=== PATIENT | male | born 1950 | race Asian ===

== ENCOUNTER 2023-01-03 06:03 | Day surgery (SDC) | payer BC, MEDICARE ==
[2022-12-27 16:12] LABS: BASOPHILS # (AUTO) 0.1 X10'3 (0-0.2); BASOPHILS % (AUTO) 0.6 % (0-1); EOSINOPHILS # (AUTO) 0.4 X10'3 (0-0.9); LYMPHOCYTES # (AUTO) 1.6 X10'3 (1.1-4.8); LYMPHOCYTES % (AUTO) 17.6 % (21-51); MEAN CORPUSCULAR HEMOGLOBIN 28.9 PG (27.0-31.0); MEAN CORPUSCULAR HGB CONC 32.8 g/dL (33.0-36.5); MEAN CORPUSCULAR VOLUME 88.1 FL (78-98); MEAN PLATELET VOLUME 8.3 FL (7.4-10.4); MONOCYTES # (AUTO) 0.8 X10'3 (0-0.9); MONOCYTES % (AUTO) 8.8 % (2-12); NEUTROPHILS # (AUTO) 6.1 X10'3 (1.8-7.7); PRE OP HEMATOCRIT 42.8 % (42.0-52.0); PRE OP HEMOGLOBIN 14.1 g/dL (14.0-17.9); PRE OP PLATELET COUNT 194 X10'3 (140-440); PRE OP WHITE BLOOD COUNT 8.9 10'3 (4.8-10.8); RED BLOOD COUNT 4.86 X10'6 (4.70-6.10)
[2022-12-27 16:27] LABS: ALBUMIN/GLOBULIN RATIO 1.3 (1.1-1.5); ALKALINE PHOSPHATASE 56 IU/L (46-116); BLOOD UREA NITROGEN 17 MG/DL (7-18); BUN/CREATININE RATIO 12.6 (10.0-20.0); CALCIUM 9.3 MG/DL (8.5-10.1); CHLORIDE 107 MMOL/L (99-107); CREATININE 1.35 MG/DL (0.60-1.10); PRE OP ALT 29 U/L (30-65); PRE OP ANION GAP 9 (8-16); PRE OP AST 16 U/L (10-37); PRE OP BILIRUB, TOTAL 0.4 MG/DL (0.0-1.0); PRE OP GLUCOSE 186 MG/DL (70-104); PRE OP POTASSIUM 3.7 MMOL/L (3.4-5.1); PRE OP SODIUM 143 MMOL/L (135-145); TOTAL CARBON DIOXIDE 27.1 MMOL/L (24-32); TOTAL PROTEIN 7.1 G/DL (6.4-8.2); eGFR 52 ML/MIN
[2023-01-03] VITALS (9 sets, daily range): BP systolic 139–167; BP diastolic 74–99; PULSE 69–90; RESP 15–19; TEMP 97.4; O2SAT 93–100
[~2023-01-03] VITALS: Ht 165.1 cm; Wt 141.8 kg
[~2023-01-03 06:03] MED LIST: CARI-515 PO; FLO0.4C PO; METF750T46 PO; REPA2TAB12 PO; ROSU10TA28 PO; VIT D; cefazolin 2gm/D5W 100mL 100 ML IV ONE; famotidine 20mg tablet PO ONE
[2023-01-03] MEDS: ringers solution, lacted 1,000 ML IV SCH ×3 (06:31→10:32)
[2023-01-03 07:31] LABS: BILIRUBIN,URINE NEGATIVE (Neg); CLARITY,URINE CLEAR (Clear); COLOR,URINE STRAW (Yellow); GLUCOSE, URINE NEGATIVE (Neg); KETONES,URINE NEGATIVE (Neg); LEUKOCYTE ESTERASE ,URINE NEGATIVE (Neg); NITRITES, URINE NEGATIVE (Neg); OCCULT BLOOD,URINE NEGATIVE (Neg); PROTEIN,URINE NEGATIVE (Neg); UROBILINOGEN,URINE 0.2 E.U/dL (0.2-1.0)
[2023-01-03 07:34] LABS: UA COLLECTION TYPE NON-SPECIFIED
[2023-01-03] MEDS ORDERED: midazolam 1 mg/ML 2ml injection ONE (08:07)
[2023-01-03] MEDS ORDERED: fentaNYL/PF 50MCG/1 ML 2ML syringe ONE ×2 (08:07→08:44)
[2023-01-03] MEDS ORDERED: rocuronium 10mg/ml inj IV ONE (08:09)
[2023-01-03] MEDS ORDERED: LIDOcaine 2% (20mg/ml) 5ml vial ONE (08:09)
[2023-01-03] MEDS ORDERED: BUPIVAcaine/PF 2.5 mg/ml (0.25%) 30ml vial ONE (08:09)
[2023-01-03] MEDS ORDERED: propofol inj 20 ML IV ONE (08:09)
[2023-01-03] MEDS ORDERED: bacitracin 15gm ointment TP ONE (08:10)
[2023-01-03] MEDS ORDERED: morphine 2 MG/ML inj. syringe IV PRN (08:15)
[2023-01-03] MEDS ORDERED: proCHLORperazine 10 MG/2 ml inj IV PRN (08:15)
[2023-01-03] MEDS ORDERED: ringers solution, lacted 1,000 ML IV SCH (08:15)
[2023-01-03] MEDS ORDERED: morphine 4 MG/ML inj SYRINge IV PRN (08:15)
[2023-01-03] MEDS ORDERED: meperidine/PF 25mg/ml syringe IV PRN ×3 (08:15)
[2023-01-03] MEDS ORDERED: ondansetron/PF 4mg/2ml inj IV PRN (08:15)
[2023-01-03] MEDS ORDERED: acetaminophen 1,000mg/100ml IV 100 ML IV ONE (08:53)
[2023-01-03] MEDS ORDERED: BUPIVAcaine 0.25% w/Epi /PF 30ml vial IJ ONE (08:54)
--- NOTE | 2023-01-03 09:45 | NUR ---
Received from OR via [facility], accompanied by Anesthesiologist DR. GUERRA and report given by Anesthesiolgist. ORDERED TO GIVE LABETOLOL IV FOR HYPERTENSION. DENIES PAIN. DRESSING TO RIGHT FOOT CDI, WITH BOOT IN PLACE. 20G PIV TO LEFT FA ORDERED TO STOP FLUIDS.
[2023-01-03] MEDS ORDERED: ondansetron/PF 4mg/2ml inj ONE (09:54)
[2023-01-03] MEDS ORDERED: neostigmine methylsulfate 1 MG/ML 10ml vial ONE (09:54)
[2023-01-03] MEDS ORDERED: glycopyrrolate 0.2mg/ml inj ONE (09:54)
[2023-01-03] MEDS ORDERED: dexamethasone sod phosphate 4mg/ml inj. ONE (09:54)
[2023-01-03] MEDS ORDERED: labetalol 20mg/4ml (5mg/ml) syringe IV STA (10:06)
--- NOTE | 2023-01-03 11:05 | NUR ---
PATIENT MEETS DISCHARGE CRITERIA FROM RECOVERY. DENIES PAIN. ASSISTED TO DRESS, THEN RE-PLACED BOOT. DRESSING CDI. PIV REMOVED WITH NO COMPLICATIONS. DISCHARGE INSTRUCTIONS REVIEWED WITH PATIENT AND , CARLOS. TRANSPORTED VIA WHEELCHAIR TO PRIVATE VEHICLE WITH ALL BELONGINGS, FOAM ELEVATOR AND DISCHARGE PAPERWORK.
== END 2023-01-03 11:05 | disposition home or self-care (01) ==
LOC: PAS 06:03
PROVIDERS: ATTEND Podiatrist Foot & Ankle Surgery
DX: M20.11 Hallux valgus (acquired), right foot (principal); M20.21 Hallux rigidus, right foot; M19.071 Primary osteoarthritis, right ankle and foot; M19.012 Primary osteoarthritis, left shoulder; M19.072 Primary osteoarthritis, left ankle and foot; E11.9 Type 2 diabetes mellitus without complications; E78.00 Pure hypercholesterolemia, unspecified; N40.0 Benign prostatic hyperplasia without lower urinary tract symptoms; Z98.890 Other specified postprocedural states; Z79.899 Other long term (current) drug therapy; Z87.891 Personal history of nicotine dependence; Z72.89 Other problems related to lifestyle; Z86.11 Personal history of tuberculosis; Z98.1 Arthrodesis status; Z80.0 Family history of malignant neoplasm of digestive organs
CPT/HCPCS: 20900; 28750; 36415; 73620; 80053; 81003; 82948; 85025; A6223; C1713; J0131; J0690; J1100; J2250; J2405; J2704; J2710; J3010; J3490; J7030; J7120; S0020; Z7506; Z7508; Z7512; 76000; A4215; A4618; A6449; A7000